=== PATIENT | female | born 1955 | race Caucasian/White ===

== ENCOUNTER 2018-01-16 18:06 | Emergency (ER) | payer MEDICARE, OTHER ==
[~2018-01-16] VITALS: Ht 162.6 cm; Wt 126.1 kg
[2018-01-16 20:45] LABS: Basophils # (auto) 0 uL; Basophils % (auto) 0.6 % (0.0-2.0); Eosinophils # (auto) 0.2 uL; Hematocrit 44.2 % (36.0-46.0); Hemoglobin 15.2 g/dL (12.2-16.2); Lymphocytes # (auto) 2.1 uL; Lymphocytes % (auto) 27.8 % (10.0-50.0); Mean Corpuscular Hemoglobin 31.8 pg (28.0-32.0); Mean Corpuscular Hgb Conc. 34.4 g/dL (32.0-36.0); Mean Corpuscular Volume 92.4 fL (80.0-100.0); Monocytes # (auto) 0.7 uL; Monocytes % (auto) 9.3 % (0.0-12.0); Neutrophils # (auto) 4.5 uL; Neutrophils % (auto) 60.3 % (37.0-80.0); Nucleated Red Blood Cells % 0.1 %; Platelet Count (auto) 295 10^3/uL (140-450); Red Blood Cells 4.78 10^6/uL (4.0-5.20); Red Cell Distribution Width 13.7 % (11.8-14.3); White Blood Cell 7.5 10^3/uL (4.4-10.8)
[2018-01-16 21:00] LABS: Alanine Aminotransferase 20 U/L (13-56); Albumin 4.1 g/dL (3.4-5.0); Alkaline Phosphatase 105 U/L (45-117); Amylase 47 U/L (25-115); Anion Gap 9 (5-15); Aspartate Aminotransferase 12 U/L (15-37); Bilirubin, Total 0.3 mg/dL (0.2-1.0); Blood Urea Nitrogen 22 mg/dL (7-18); Calcium 9.6 mg/dL (8.5-10.1); Carbon Dioxide 24 mmol/L (21-32); Chloride 105 mmol/L (98-107); GFR African American 57 mL/min; GFR Non-African American 47 mL/min; Glucose 93 mg/dL (74-106); Lipase 318 U/L (73-393); Potassium 4.2 mmol/L (3.5-5.1); Sodium 138 mmol/L (136-145); Total Protein 8.2 g/dL (6.4-8.2)
[2018-01-16 22:30] VITALS: BP 122/62
[2018-01-16] MEDS ORDERED: SODIUM CHLORIDE 0.9% 1,000 ML IV ONE (22:30)
[2018-01-16] MEDS ORDERED: NALBUPHINE HCL 10 MG/1ml INJECTION IV ONE (22:30)
[2018-01-16] MEDS ORDERED: ONDANSETRON HCL 4 MG/2 ML VIAL IV ONE (22:30)
[2018-01-16 23:15] LABS: Urine Bacteria FEW /hpf (None Seen); Urine Blood Negative /uL (Negative); Urine Mucus FEW (None Seen); Urine Specific Gravity 1.015 (1.001-1.035); Urine WBC 32 /hpf (0 - 5)
[2018-01-16] MEDS ORDERED: CEFTRIAXONE SODIUM 2 GM in D5W 5% 50 ML IV ONE (23:45)
[2018-01-16] MEDS ORDERED: cefTRIAXone 1GM/10ml IVPUSH 20 ML IV ONE (23:54)
[2018-01-17] MEDS ORDERED: cefTRIAXone 1GM/10ml IVPUSH 10 ML IV ONE ×2
== END 2018-01-17 00:23 | disposition home or self-care (01) ==
LOC: ER 18:06
DX: N39.0 Urinary tract infection, site not specified (principal); E66.01 Morbid (severe) obesity due to excess calories; Z68.42 Body mass index [BMI] 45.0-49.9, adult; Z90.710 Acquired absence of both cervix and uterus
CPT/HCPCS: 36415; 74176; 80053; 81001; 82150; 83690; 84484; 85025; 93005; 96374; 96375; 99285; J2300; J2405; J0696; J7060

== ENCOUNTER → 2018-01-23 | Outpatient (CLI) | payer OTHER ==
[2018-01-23 17:19] LABS: Albumin 3.5 g/dL (3.4-5.0); BUN/Creatinine Ratio 14.7; Bilirubin, Total 0.2 mg/dL (0.2-1.0); Calcium 8.5 mg/dL (8.5-10.1); Potassium 4.3 mmol/L (3.5-5.1); Total Protein 7.2 g/dL (6.4-8.2)
== END | disposition home or self-care (01) ==
LOC: LAB 16:09
PROVIDERS: ATTEND Internal Medicine
DX: K80.80 Other cholelithiasis without obstruction (principal); R11.0 Nausea
CPT/HCPCS: 36415; 80053; 82150; 83690

== ENCOUNTER → 2018-02-12 | Outpatient (CLI) | payer OTHER ==
[2018-02-12 15:35] LABS: Basophils # (auto) 0.1 uL; Basophils % (auto) 0.6 % (0.0-2.0); Eosinophils # (auto) 0.2 uL; Eosinophils % (auto) 1.7 % (0.0-7.0); Hemoglobin 14.6 g/dL (12.2-16.2); Lymphocytes # (auto) 2.1 uL; Lymphocytes % (auto) 21.5 % (10.0-50.0); Mean Corpuscular Hemoglobin 31.3 pg (28.0-32.0); Mean Corpuscular Hgb Conc. 33.9 g/dL (32.0-36.0); Mean Corpuscular Volume 92.3 fL (80.0-100.0); Monocytes % (auto) 10.3 % (0.0-12.0); Neutrophils # (auto) 6.3 uL; Neutrophils % (auto) 65.9 % (37.0-80.0); Nucleated Red Blood Cells % 0.1 %; Platelet Count (auto) 301 10^3/uL (140-450); Red Blood Cells 4.66 10^6/uL (4.0-5.20); Red Cell Distribution Width 13.7 % (11.8-14.3); White Blood Cell 9.6 10^3/uL (4.4-10.8)
[2018-02-12 15:54] LABS: Albumin 3.9 g/dL (3.4-5.0); BUN/Creatinine Ratio 15.6; Bilirubin, Total 0.4 mg/dL (0.2-1.0); Calcium 9.3 mg/dL (8.5-10.1); Potassium 4.2 mmol/L (3.5-5.1); Total Protein 7.7 g/dL (6.4-8.2)
== END | disposition home or self-care (01) ==
LOC: LAB 14:58
PROVIDERS: ATTEND Internal Medicine
DX: N39.0 Urinary tract infection, site not specified (principal); R10.10 Upper abdominal pain, unspecified; K92.1 Melena
CPT/HCPCS: 36415; 80053; 82150; 83690; 85025; 85652; 87086

== ENCOUNTER → 2018-02-16 | Outpatient (CLI) | payer OTHER | END | disposition home or self-care (01) | LOC: LAB 10:26 | PROVIDERS: ATTEND Internal Medicine | DX: K92.1 Melena (principal); N32.0 Bladder-neck obstruction | CPT/HCPCS: 82270 ==

== ENCOUNTER → 2018-04-30 | Outpatient (CLI) | payer OTHER | END | disposition home or self-care (01) | LOC: LAB 13:47 | PROVIDERS: ATTEND Internal Medicine Gastroenterology | DX: R10.11 Right upper quadrant pain (principal); R10.84 Generalized abdominal pain; R19.7 Diarrhea, unspecified | CPT/HCPCS: 82784; 83516; 86255 ==

== ENCOUNTER → 2018-05-12 | Outpatient (CLI) | payer OTHER | END | disposition home or self-care (01) | LOC: LAB 10:28 | PROVIDERS: ATTEND Internal Medicine Gastroenterology | DX: R10.11 Right upper quadrant pain (principal); R19.7 Diarrhea, unspecified | CPT/HCPCS: 82705; 87045; 87177; 87493; 87899 ==

== ENCOUNTER → 2018-07-06 | Day surgery (SDC) | payer OTHER ==
[2018-07-02 10:05] LABS: Urine Bacteria FEW /hpf (None Seen); Urine Blood Negative /uL (Negative); Urine Mucus FEW (None Seen); Urine Specific Gravity 1.012 (1.001-1.035); Urine WBC 3 /hpf (0 - 5)
[2018-07-02 10:12] LABS: Basophils # (auto) 0 uL; Basophils % (auto) 0.6 % (0.0-2.0); Eosinophils # (auto) 0.1 uL; Eosinophils % (auto) 2.1 % (0.0-7.0); Hematocrit 44.1 % (36.0-46.0); Hemoglobin 14.9 g/dL (12.2-16.2); Lymphocytes # (auto) 1.7 uL; Lymphocytes % (auto) 33.8 % (10.0-50.0); Mean Corpuscular Hemoglobin 31.3 pg (28.0-32.0); Mean Corpuscular Hgb Conc. 33.7 g/dL (32.0-36.0); Mean Corpuscular Volume 92.6 fL (80.0-100.0); Monocytes # (auto) 0.5 uL; Monocytes % (auto) 9.6 % (0.0-12.0); Neutrophils # (auto) 2.6 uL; Neutrophils % (auto) 53.9 % (37.0-80.0); Platelet Count (auto) 300 10^3/uL (140-450); Red Blood Cells 4.76 10^6/uL (4.0-5.20); Red Cell Distribution Width 13.3 % (11.8-14.3); White Blood Cell 4.9 10^3/uL (4.4-10.8)
[2018-07-02 10:20] LABS: Albumin 3.9 g/dL (3.4-5.0); BUN/Creatinine Ratio 18.2; Calcium 9.6 mg/dL (8.5-10.1); INR 0.98 (0.9-1.15); Partial Thromboplastin Time 27.4 sec (23.78-33.04); Potassium 4.3 mmol/L (3.5-5.1); Prothrombin Time 10.5 sec (9.27-12.13)
[2018-07-02 10:22] LABS: Bilirubin, Total 0.4 mg/dL (0.2-1.0); Total Protein 8.2 g/dL (6.4-8.2)
[~2018-07-06] VITALS: Ht 162.6 cm; Wt 122.5 kg
[~2018-07-06] MED LIST: DEXAMETHASONE SOD PHOS 10MG/1ML VIAL INJ IV ONE; ERGO1CAP6 PO; HYDR12.56 PO; HYDROmorphone HCL 2 MG/ML VL IV PRN; KETOROLAC TROMETH 30 MG/ML 1ML VIAL IV ONE; LABETALOL HCL 5 MG/ML 4ML SYRINGE IV PRN; LISI-646 PO; MEPERIDINE HCL (50 MG/ML) 1 ML VIAL ONE; METO-169 PO; MIDAZOLAM HCL 1MG/1ML-2 ML VIAL IV PRN; MIDAZOLAM HCL 1MG/1ML-2 ML VIAL ONE; MORPHINE SULFATE 4 MG/ML SYR/VIAL IV ONE; MORPHINE SULFATE 4 MG/ML SYR/VIAL IV PRN; ONDANSETRON HCL 4 MG/2 ML VIAL IV ONE; ONDANSETRON HCL 4 MG/2 ML VIAL ONE; PROPOFOL 10 MG/ML 20 ML IV ONE; ePHEDrine SULFATE 50 MG/ML AMP IV PRN; fentaNYL CITRATE 100 MCG/2 ML VL ONE
[2018-07-06 13:08] VITALS: BP 110/65
== END | disposition home or self-care (01) ==
LOC: SUR 09:56
PROVIDERS: ATTEND Internal Medicine Gastroenterology
DX: K29.80 Duodenitis without bleeding (principal); K29.50 Unspecified chronic gastritis without bleeding; K31.7 Polyp of stomach and duodenum; R19.7 Diarrhea, unspecified; K22.10 Ulcer of esophagus without bleeding; I10 Essential (primary) hypertension; E66.9 Obesity, unspecified; Z68.42 Body mass index [BMI] 45.0-49.9, adult; Z88.5 Allergy status to narcotic agent; Z79.899 Other long term (current) drug therapy; Z98.49 Cataract extraction status, unspecified eye; Z98.890 Other specified postprocedural states
CPT/HCPCS: 36415; 43239; 45380; 80053; 81001; 85025; 85610; 85730; 88305; 88313; 88342; A6257; J1100; J2175; J2250; J2405; J2704; J3010; J7030

== ENCOUNTER → 2018-09-04 | Outpatient (CLI) | payer OTHER ==
[~2018-09-04] MED LIST changes: -DEXAMETHASONE SOD PHOS 10MG/1ML VIAL INJ IV ONE; -HYDROmorphone HCL 2 MG/ML VL IV PRN; -KETOROLAC TROMETH 30 MG/ML 1ML VIAL IV ONE; -LABETALOL HCL 5 MG/ML 4ML SYRINGE IV PRN; -MEPERIDINE HCL (50 MG/ML) 1 ML VIAL ONE; -MIDAZOLAM HCL 1MG/1ML-2 ML VIAL IV PRN; -MIDAZOLAM HCL 1MG/1ML-2 ML VIAL ONE; -MORPHINE SULFATE 4 MG/ML SYR/VIAL IV ONE; -MORPHINE SULFATE 4 MG/ML SYR/VIAL IV PRN; -ONDANSETRON HCL 4 MG/2 ML VIAL IV ONE; -ONDANSETRON HCL 4 MG/2 ML VIAL ONE; -PROPOFOL 10 MG/ML 20 ML IV ONE; -ePHEDrine SULFATE 50 MG/ML AMP IV PRN; -fentaNYL CITRATE 100 MCG/2 ML VL ONE
== END | disposition home or self-care (01) ==
LOC: XY 07:03
PROVIDERS: ATTEND Internal Medicine Gastroenterology
DX: R10.11 Right upper quadrant pain (principal); R19.7 Diarrhea, unspecified
CPT/HCPCS: 78226; A9537

== ENCOUNTER → 2019-02-03 | Outpatient (CLI) | payer OTHER | END | disposition home or self-care (01) | LOC: XY 08:35 | PROVIDERS: ATTEND Internal Medicine Gastroenterology | DX: R10.11 Right upper quadrant pain (principal); R19.7 Diarrhea, unspecified | CPT/HCPCS: 78264; A9541 ==

== ENCOUNTER → 2019-03-15 | Outpatient (CLI) | payer OTHER ==
[2019-03-15 09:42] LABS: Basophils # (auto) 0 uL; Basophils % (auto) 0.5 % (0.0-2.0); Eosinophils # (auto) 0.2 uL; Eosinophils % (auto) 1.7 % (0.0-7.0); Hematocrit 43.2 % (36.0-46.0); Hemoglobin 14.7 g/dL (12.2-16.2); Lymphocytes # (auto) 1.2 uL; Lymphocytes % (auto) 13.8 % (10.0-50.0); Mean Corpuscular Hemoglobin 30.8 pg (28.0-32.0); Mean Corpuscular Hgb Conc. 33.9 g/dL (32.0-36.0); Mean Corpuscular Volume 90.9 fL (80.0-100.0); Monocytes # (auto) 0.7 uL; Monocytes % (auto) 8.3 % (0.0-12.0); Neutrophils # (auto) 6.8 uL; Neutrophils % (auto) 75.7 % (37.0-80.0); Platelet Count (auto) 265 10^3/uL (140-450); Red Blood Cells 4.76 10^6/uL (4.0-5.20); Red Cell Distribution Width 13.7 % (11.8-14.3); White Blood Cell 8.9 10^3/uL (4.4-10.8)
[2019-03-15 10:10] LABS: Potassium 4.2 mmol/L (3.5-5.1)
[2019-03-15 10:18] LABS: Albumin 3.7 g/dL (3.4-5.0); BUN/Creatinine Ratio 16.9; Bilirubin, Total 0.6 mg/dL (0.2-1.0); Calcium 9.6 mg/dL (8.5-10.1)
== END | disposition home or self-care (01) ==
LOC: LAB 09:04
PROVIDERS: ATTEND Internal Medicine
DX: Z00.00 Encounter for general adult medical examination without abnormal findings (principal); D57.80 Other sickle-cell disorders without crisis; E55.9 Vitamin D deficiency, unspecified; I10 Essential (primary) hypertension
CPT/HCPCS: 36415; 80053; 80061; 82306; 82607; 84443; 85025

== ENCOUNTER → 2019-04-27 | Outpatient (CLI) | payer OTHER, MEDICARE | END | disposition home or self-care (01) | LOC: LAB 11:33 | PROVIDERS: ATTEND Internal Medicine | DX: Z12.11 Encounter for screening for malignant neoplasm of colon (principal) | CPT/HCPCS: 82274 ==

== ENCOUNTER → 2019-05-07 | Outpatient (CLI) | payer MEDICARE, OTHER ==
[~2019-05-07] MED LIST changes: +AMIT-238 PO; +CHOL500023 PO; +GABA300C10 PO; +LIDOCAINE 1% HCL (LOCAL ANESTH.) INJ 20ML MDV IJ ONE; +PANT40TA2 PO
== END | disposition home or self-care (01) ==
LOC: US 09:37
PROVIDERS: ATTEND Internal Medicine
DX: C50.411 Malignant neoplasm of upper-outer quadrant of right female breast (principal); I10 Essential (primary) hypertension; E66.9 Obesity, unspecified; M54.16 Radiculopathy, lumbar region; K44.9 Diaphragmatic hernia without obstruction or gangrene; Z17.0 Estrogen receptor positive status [ER+]; Z98.890 Other specified postprocedural states; Z79.899 Other long term (current) drug therapy; Z68.42 Body mass index [BMI] 45.0-49.9, adult
CPT/HCPCS: 19083; 19084; 88305; 88342; J2001; 10022; 76942

== ENCOUNTER 2019-06-02 10:52 | Inpatient (IN) | payer OTHER ==
[2019-05-31 14:48] LABS: Basophils # (auto) 0.1 uL; Basophils % (auto) 0.8 % (0.0-2.0); Eosinophils # (auto) 0.1 uL; Eosinophils % (auto) 2.1 % (0.0-7.0); Hematocrit 42.1 % (36.0-46.0); Hemoglobin 14.3 g/dL (12.2-16.2); Lymphocytes # (auto) 2.2 uL; Lymphocytes % (auto) 31.8 % (10.0-50.0); Mean Corpuscular Hemoglobin 30.6 pg (28.0-32.0); Monocytes # (auto) 0.7 uL; Neutrophils # (auto) 3.9 uL; Neutrophils % (auto) 55.3 % (37.0-80.0); Nucleated Red Blood Cells % 0.1 %; Platelet Count (auto) 265 10^3/uL (140-450); Red Blood Cells 4.68 10^6/uL (4.0-5.20); Red Cell Distribution Width 13.8 % (11.8-14.3)
[2019-05-31 14:52] LABS: Albumin 3.6 g/dL (3.4-5.0); BUN/Creatinine Ratio 17.5; Calcium 9.2 mg/dL (8.5-10.1); Potassium 4.1 mmol/L (3.5-5.1)
[2019-05-31 14:55] LABS: Bilirubin, Total 0.3 mg/dL (0.2-1.0); Total Protein 7.7 g/dL (6.4-8.2)
[2019-05-31 14:56] LABS: INR 0.99 (0.9-1.15); Partial Thromboplastin Time 25.9 sec (23.64-32.05)
[2019-05-31 15:07] LABS: Urine Bacteria NONE SEEN /hpf (None Seen); Urine Blood Negative /uL (Negative); Urine Mucus FEW (None Seen); Urine Specific Gravity 1.012 (1.001-1.035); Urine WBC 52 /hpf (0 - 5)
[~2019-06-02] VITALS: Ht 162.6 cm; Wt 121.5 kg
[~2019-06-02 10:52] MED LIST changes: -ERGO1CAP6 PO; -LIDOCAINE 1% HCL (LOCAL ANESTH.) INJ 20ML MDV IJ ONE
[2019-06-02] MEDS ORDERED: PROPOFOL 10 MG/ML 20 ML IV ONE ×2 (14:14→15:00)
[2019-06-02] MEDS ORDERED: fentaNYL CITRATE 100 MCG/2 ML VL ONE ×2 (14:14→15:13)
[2019-06-02] MEDS ORDERED: ONDANSETRON HCL 4 MG/2 ML VIAL ONE (14:14)
[2019-06-02] MEDS ORDERED: SODIUM CHLORIDE LOCK 0 ML ONE (14:14)
[2019-06-02] MEDS ORDERED: ROCURONIUM 10MG/ML 10ML VIAL IV ONE ×3 (14:14→15:04)
[2019-06-02] MEDS ORDERED: fentaNYL CITRATE 0 ML ONE (14:14)
[2019-06-02] MEDS ORDERED: MIDAZOLAM HCL 1MG/1ML-2 ML VIAL ONE ×2 (14:14→14:58)
[2019-06-02] MEDS ORDERED: SUCCINYLCHOLINE CHLORIDE 20 MG/ML 10ML VIAL IV ONE (14:53)
[2019-06-02] MEDS ORDERED: LIDOCAINE 1% (LOCAL ANESTH.) PF 5ml SDV ONE (14:53)
[2019-06-02] MEDS ORDERED: ceFAZolin 1GM/50ML 50 ML IV ONE (14:54)
[2019-06-02] MEDS ORDERED: METOCLOPRAMIDE HCL 5MG/ml INJ 2ml VIAL ONE (14:59)
[2019-06-02] MEDS ORDERED: NALOXONE HCL 0.4 MG/ML VIAL IV PRN (15:15)
[2019-06-02] MEDS ORDERED: ONDANSETRON HCL 4 MG/2 ML VIAL IV PRN ×3 (15:15→17:30)
[2019-06-02] MEDS ORDERED: HYDROmorphone HCL 2 MG/ML VL IV PRN (15:15)
[2019-06-02] MEDS ORDERED: KETOROLAC TROMETH 30 MG/ML 1ML VIAL IV PRN ×3 (16:45→18:00)
[2019-06-02] MEDS: HYDROmorphone HCL 2 MG/ML VL IV PRN ×4 (16:55→17:35)
[2019-06-02] MEDS ORDERED: hydrALAZINE HCL 20 MG/ML VL IV PRN (17:30)
[2019-06-02] MEDS ORDERED: MORPHINE SULF INJ 2 MG/ML SYRINGE 1ML IV PRN (17:30)
[2019-06-02] MEDS ORDERED: NITROGLYCERIN 0.4 MG SL TAB SL PRN (17:30)
--- NOTE | 2019-06-02 18:00 | NUR ---
S/P Right MOdified Mastectomy Assumed care of the patient. Received reports from FLIGHT DIRECTOR. Patient to room 271-B following Right Mastectomy with Axillary Lymph Nodes Removal. With Ismael wrap dressing around the chest dry and intact. With 2 ANNA drains, first drain draining to sanguinous output in minimal amount. Vital signs taken, surgical site assessed for redness, swelling, or bleeding. Patient instructed on need to inform staff immediately for any pain, swelling, bleeding or pulling or popping sensations at surgical site. Patient verbalized understanding. Addendum: 06/02/19 at 1845 by Dora Haines RN Surgery performed by Dr. Mcmillan under general anesthesia.
[2019-06-02 18:15] VITALS: BP 123/77
[2019-06-02] MEDS: D5W/SOD CHL 0.45%/KCL 40MEQ 1,000 ML IV SCH (19:34)
--- NOTE | 2019-06-02 20:05 | NUR ---
open note assumed care of pt. upon entering room pt awake, alert and oriented x4. pt on 2L nc with no distress noted or expressed. pt has two ANNA drains to right chest area numbered 1 and 2. no drainage from #2. 60ml sanguineous fluid drained from #1. pt bed locked, low and 2x rails up. dressing to right chest CDI, with saeid bandage wrap. pt call light in reach, encouraged to call as needed. pt updated on plan of care. no questions at this time. will round q1hr and prn.
[2019-06-02 22:00] VITALS: BP 100/72
[2019-06-02] MEDS: GABAPENTIN 300 MG CAP PO SCH (22:37)
[2019-06-02] MEDS: ceFAZolin 1GM/50ML 50 ML IV SCH (22:37)
[2019-06-02] MEDS: traMADol HCL 50 MG TAB PO PRN (23:02)
--- NOTE | 2019-06-02 23:02 | NUR ---
ANNA drain #1; drained 45ml sanguineous fluid. scant drainage noted from drain #2
--- NOTE | 2019-06-03 03:50 | NUR ---
isi #1 45ml serosanguineous fluid drained isi #2 15ml sanguineous fluid drained.
[2019-06-03] MEDS: D5W/SOD CHL 0.45%/KCL 40MEQ 1,000 ML IV SCH ×2 (03:51→12:45)
[2019-06-03 05:00] VITALS: BP 104/42
[2019-06-03 05:10] LABS: Basophils # (auto) 0.1 uL; Basophils % (auto) 0.6 % (0.0-2.0); Eosinophils # (auto) 0 uL; Eosinophils % (auto) 0.1 % (0.0-7.0); Hemoglobin 12.7 g/dL (12.2-16.2); Lymphocytes # (auto) 1.2 uL; Lymphocytes % (auto) 12.8 % (10.0-50.0); Mean Corpuscular Hemoglobin 30.5 pg (28.0-32.0); Mean Corpuscular Hgb Conc. 34.3 g/dL (32.0-36.0); Mean Corpuscular Volume 89.1 fL (80.0-100.0); Monocytes # (auto) 1.1 uL; Monocytes % (auto) 11.5 % (0.0-12.0); Neutrophils # (auto) 6.9 uL; Platelet Count (auto) 245 10^3/uL (140-450); Red Blood Cells 4.15 10^6/uL (4.0-5.20); White Blood Cell 9.3 10^3/uL (4.4-10.8)
[2019-06-03 05:47] LABS: Potassium 4.4 mmol/L (3.5-5.1)
[2019-06-03 05:52] LABS: BUN/Creatinine Ratio 18.2; Calcium 8.6 mg/dL (8.5-10.1)
[2019-06-03] MEDS: GABAPENTIN 300 MG CAP PO SCH ×3 (06:12→21:31)
[2019-06-03] MEDS: ceFAZolin 1GM/50ML 50 ML IV SCH ×3 (06:12→21:31)
[2019-06-03] MEDS: HYDROmorphone HCL 2 MG/ML VL IV PRN ×3 (07:59→23:50)
[2019-06-03 09:00] VITALS: BP 94/58
[2019-06-03] MEDS: PANTOPRAZOLE 40 MG TAB PO SCH (09:35)
[2019-06-03] MEDS ORDERED: LISINOPRIL 10 MG TAB PO SCH (10:00)
[2019-06-03] MEDS: METOPROLOL SUCCINATE XL 50 MG TAB PO SCH (10:00)
--- NOTE | 2019-06-03 10:00 | NUR ---
Held administration of antihypertensive medications at this time because BP-94/58. Will continue to monitor.
[2019-06-03 13:00] VITALS: BP 105/77
--- NOTE | 2019-06-03 16:30 | NUR ---
Patient was able to ambulate with standby/minimal assist to the bathroom. Will continue care.
[2019-06-03 16:51] VITALS: BP 109/48
--- NOTE | 2019-06-03 17:00 | NUR ---
Empty 50ml on ANNA#1 and 15ml on ANNA#2 of serosanguinous output. Change of dressing on the right breast done. Will continue to monitor.
--- NOTE | 2019-06-03 19:45 | NUR ---
open note assumed care of pt. upon entering room pt awake and alert. pt on room air no distress noted or expressed. pt updated on plan of care, no questions at this time. pt has ANNA drain #1 and #[address] dressing to chest clean dry and intact. this nurse will monitor drainage and record. bed locked, low and 2 x rails up. call light in reach, will round q1hr and prn.
--- NOTE | 2019-06-03 21:32 | NUR ---
ANNA #1 50ml serosanguineous fluid emptied #2 10ml serosanguineous fluid emptied.
[2019-06-03 22:00] VITALS: BP 107/49
--- NOTE | 2019-06-03 23:50 | NUR ---
drains #1 ANNA 20ml serosanguineous #2 ANNA 10ml serosanguineous
[2019-06-04] MEDS: D5W/SOD CHL 0.45%/KCL 40MEQ 1,000 ML IV SCH (00:41)
[2019-06-04 04:58] VITALS: BP 103/64
[2019-06-04] MEDS: ceFAZolin 1GM/50ML 50 ML IV SCH ×3 (05:33→21:40)
[2019-06-04] MEDS: GABAPENTIN 300 MG CAP PO SCH ×3 (05:33→21:40)
[2019-06-04 06:00] LABS: BUN/Creatinine Ratio 13.8; Calcium 8.8 mg/dL (8.5-10.1); Potassium 5.4 mmol/L (3.5-5.1)
--- NOTE | 2019-06-04 06:44 | NUR ---
ANNA drains #1 20ml serosanguineous #2 10ml serosanguineous
--- NOTE | 2019-06-04 08:00 | NUR ---
Opening Shift Note Assumed care of patient, awake and alert. No S/S of distress/SOB, 5/10 right chest pain-incision site. Instructed on POC and to call for assist PRN, will continue to monitor for changes Q1hr and PRN.
[2019-06-04 09:00] VITALS: BP 93/44
[2019-06-04] MEDS: PANTOPRAZOLE 40 MG TAB PO SCH (10:38)
[2019-06-04] MEDS: METOPROLOL SUCCINATE XL 50 MG TAB PO SCH (10:38)
--- NOTE | 2019-06-04 12:02 | NUR ---
Nutrition Assessment Notes please see attached link for complete assessment Est. Needs ABW [id number] kcal (17-20 kcal/kgBW), 70-88 gms pro (0.8-1.0 gms/kgBW r/t elev RFT CKD). Will continue to monitor pertinent labs and reassess nutrient need prn Addendum: 06/04/19 at [address] Amended: Links added.
[2019-06-04 13:00] VITALS: BP 93/52
--- NOTE | 2019-06-04 14:00 | NUR ---
IV removal IV on the right hand infiltrated. IV DC'd with clean sterile technique, catheter fully intact. Pressure dressing applied to site. Patient tolerated well. Addendum: 06/04/19 at 1447 by Dora Haines RN correction on documentation: IV on the left hand infiltrated not the right hand. No IV on the right hand.
--- NOTE | 2019-06-04 14:05 | NUR ---
IV insertion IV access obtained, via clean sterile technique by inserting 20 gauge catheter at left forearm after one attempt. IV secured properly. No trauma to site. Patient tolerated well.
[2019-06-04] MEDS: SODIUM CHLORIDE 0.9% 1,000 ML IV SCH (14:23)
--- NOTE | 2019-06-04 14:40 | NUR ---
Patient may be possible discharge tomorrow, called Surgery office to make follow up appointment with Dr. Mcmillan ext. [phone] but unable to het a hold of the office. Will try again later.
[2019-06-04 16:37] VITALS: BP 118/71
--- NOTE | 2019-06-04 16:42 | NUR ---
Called surgery office ext. [phone], spoke with Roxane, patient's appointment made and it will be on 06/15/19 at 9:30am.
[2019-06-04] MEDS ORDERED: SODIUM ZIRCONIUM CYCL 10 GM PAK PO ONE (17:00)
--- NOTE | 2019-06-04 17:00 | NUR ---
Change of dressing done on the right chest.
--- NOTE | 2019-06-04 17:57 | NUR ---
Assessment Pt is a 63 yr old female, alert and oriented. Pt recently had a mastectomy of her right breast. Prior to going to the hospital, pt lived alone but stated that for recovery, she will be moving in with her mother. Her mother, Shasha Pruitt, is her emergency contact at [phone]. She states that her brother and niece would come over frequently to help her. Pt stated that her brother helps to cook and clean and that her niece would help to change the dressings on he wound and to bathe her. SW educated pt on home health services and asked pt if she would need any services. Pt denied the need for HH now and stated that they have everything taken care of. Pt stated that her mom has a walker and shower chair if she should need it. Pts Primary is Dr Mendy Charles at [phone]. The nurse informed that pt that per drs orders, the pt will be d/c tomorrow. Pts brother will provide transportation. Addendum: 06/04/19 at 1758 by KHANH ROSALES Amended: Links added.
--- NOTE | 2019-06-04 18:00 | NUR ---
ANNA #1-160ML ANNA #2-25ML TOTAL = 185ML
[2019-06-04] MEDS: traMADol HCL 50 MG TAB PO PRN (20:17)
--- NOTE | 2019-06-04 20:17 | NUR ---
HEADACHE PATIENT REPORTING HEADACHE RATED 7/10, PATIENT GIVEN PRN PAIN MEDICATION REQUESTED
--- NOTE | 2019-06-04 20:25 | NUR ---
ANNA DRAIN EMPTIED X2 DRAIN 1=45ML SEROSANGUINEOUS DRAINAGE DRAIN 2= APPROXIMATELY 5ML SEROSANGUINEOUS DRAINAGE NO ODORS NOTED FROM DRAINAGE. RETURNED BOTH TO BULB SUCTION ORDERED.
--- NOTE | 2019-06-04 20:30 | NUR ---
INSTRUCTED PATIENT ON NEED FOR URINE SAMPLE, HAT PLACED IN TOILET AND CUP PROVIDED TO PATIENT. INSTRUCTED PATIENT TO CALL FOR ASSIST ONCE SHE IS READY TO VOID, SHE VERBALIZED UNDERSTANDING.
--- NOTE | 2019-06-04 20:30 | NUR ---
INCENTIVE SPIROMETRY AND AMBULATION INSTRUCTED PATIENT ON THE IMPORTANCE OF AMBULATION AT LEAST EVERY 4 HOURS ORDERED BY THE DOCTOR. PATIENT STATES SHE JUST AMBULATED TO THE BATHROOM AND AMBULATED TODAY WITH PHYSICAL THERAPY IN THE HALLWAYS USING A WALKER. PATIENT STATES SHE TOLERATED THAT WELL. INSTRUCTED PATIENT ON THE IMPORTANCE OF INCENTIVE SPIROMETRY EXERCISES AT LEAST 10X/HOUR WHILE AWAKE TO PREVENT POST-OP PNEUMONIA/COMPLICATIONS, SHE VERBALIZED UNDERSTANDING. PATIENT PERFORMED I.S. EXERCISES CORRECTLY 10X IN FRONT OF MYSELF.
[2019-06-04 21:00] VITALS: BP 104/66
[2019-06-05] MEDS: SODIUM CHLORIDE 0.9% 1,000 ML IV SCH ×2 (01:19→09:15)
--- NOTE | 2019-06-05 02:50 | NUR ---
ANNA DRAIN EMPTIED X2 DRAIN 1=45ML SEROSANGUINEOUS DRAINAGE DRAIN 2= APPROXIMATELY 5ML SEROSANGUINEOUS DRAINAGE NO ODORS NOTED FROM DRAINAGE. RETURNED BOTH TO BULB SUCTION ORDERED.
[2019-06-05 04:51] VITALS: BP 101/71
[2019-06-05] MEDS: GABAPENTIN 300 MG CAP PO SCH (05:53)
[2019-06-05] MEDS: ceFAZolin 1GM/50ML 50 ML IV SCH (05:54)
[2019-06-05 06:40] LABS: BUN/Creatinine Ratio 19.8; Calcium 8.6 mg/dL (8.5-10.1); Potassium 4.5 mmol/L (3.5-5.1)
--- NOTE | 2019-06-05 06:50 | NUR ---
ANNA DRAIN EMPTIED X2 DRAIN 1=30ML SEROSANGUINEOUS DRAINAGE DRAIN 2= SCANT SEROSANGUINEOUS DRAINAGE NO ODORS NOTED FROM DRAINAGE. RETURNED BOTH TO BULB SUCTION ORDERED.
--- NOTE | 2019-06-05 07:00 | NUR ---
ANNA DRAIN OUTPUT TOTAL DRAIN 1-120ML DRAIN 2-10ML DRESSING TO RIGHT CHEST REMAINS C/D/I. INCISION SITE WELL-APPROXIMATED WITH RAMÍREZ INTACT. MINIMAL DRIED DRAINAGE NOTED.
--- NOTE | 2019-06-05 07:15 | NUR ---
Opening Shift Note: Assumed care of patient, asleep in bed. No S/S of distress/SOB or pain. Bed in lowest locked position, side rails up x 2, call light within reach. Will instructe on POC, will continue to monitor for changes Q1hr and PRN.
[2019-06-05 09:13] VITALS: BP 126/62
[2019-06-05] MEDS: PANTOPRAZOLE 40 MG TAB PO SCH (09:22)
[2019-06-05] MEDS: METOPROLOL SUCCINATE XL 50 MG TAB PO SCH (09:23)
[2019-06-05 11:48] VITALS: BP 101/58
[2019-06-05 13:28] VITALS: BP 126/62
--- NOTE | 2019-06-05 13:59 | NUR ---
ANNA DRAIN #1- 40 ml #2- 10 mL
--- NOTE | 2019-06-05 14:02 | NUR ---
IV removal IV DC'd with clean sterile technique, catheter fully intact. Pressure dressing applied to site. Patient tolerated well.
== END 2019-06-05 14:16 | disposition home or self-care (01) | DRG 582 ==
LOC: SUR 10:52 → WEST WING 10:53
PROVIDERS: ADMIT Surgery; ATTEND Internal Medicine
PROC: 0HTT0ZZ Resection of Right Breast, Open Approach (ICD-10-PCS; principal; 2019-06-02 14:54)
DX: C50.911 Malignant neoplasm of unspecified site of right female breast (principal); N17.0 Acute kidney failure with tubular necrosis; Z68.42 Body mass index [BMI] 45.0-49.9, adult; E87.1 Hypo-osmolality and hyponatremia; E66.01 Morbid (severe) obesity due to excess calories; I12.9 Hypertensive chronic kidney disease with stage 1 through stage 4 chronic kidney disease, or unspecified chronic kidney disease; N18.3 Chronic kidney disease, stage 3 (moderate); G89.29 Other chronic pain; F32.9 Major depressive disorder, single episode, unspecified; M54.9 Dorsalgia, unspecified; E87.5 Hyperkalemia; R59.9 Enlarged lymph nodes, unspecified; Z79.899 Other long term (current) drug therapy; Z88.5 Allergy status to narcotic agent; Z87.11 Personal history of peptic ulcer disease
CPT/HCPCS: 36415; 80048; 80053; 81001; 84132; 85025; 85610; 85730; 87086; 88341; 97116; 97163; 97530; G0378; J0330; J0690; J1885; J2250; J2405; J2704

== ENCOUNTER → 2019-06-11 | Outpatient (CLI) | payer OTHER ==
[2019-06-11 14:44] LABS: Basophils # (auto) 0.1 uL; Basophils % (auto) 0.7 % (0.0-2.0); Eosinophils # (auto) 0.2 uL; Eosinophils % (auto) 2.5 % (0.0-7.0); Hematocrit 36.4 % (36.0-46.0); Hemoglobin 12.1 g/dL (12.2-16.2); Lymphocytes % (auto) 22.1 % (10.0-50.0); Mean Corpuscular Hemoglobin 30.5 pg (28.0-32.0); Mean Corpuscular Hgb Conc. 33.3 g/dL (32.0-36.0); Mean Corpuscular Volume 91.5 fL (80.0-100.0); Monocytes # (auto) 0.6 uL; Monocytes % (auto) 6.2 % (0.0-12.0); Neutrophils # (auto) 6.3 uL; Neutrophils % (auto) 68.5 % (37.0-80.0); Platelet Count (auto) 341 10^3/uL (140-450); Red Blood Cells 3.97 10^6/uL (4.0-5.20); Red Cell Distribution Width 13.9 % (11.8-14.3); White Blood Cell 9.2 10^3/uL (4.4-10.8)
[2019-06-11 15:31] LABS: Albumin 3.1 g/dL (3.4-5.0); BUN/Creatinine Ratio 17.1; Potassium 4.3 mmol/L (3.5-5.1)
[2019-06-11 15:34] LABS: Bilirubin, Total 0.3 mg/dL (0.2-1.0)
== END | disposition home or self-care (01) ==
LOC: LAB 14:27
PROVIDERS: ATTEND Internal Medicine Hematology & Oncology
DX: C50.911 Malignant neoplasm of unspecified site of right female breast (principal)
CPT/HCPCS: 36415; 80053; 85025; 86300

== ENCOUNTER → 2019-10-19 | Outpatient (CLI) | payer OTHER ==
[2019-10-19 14:22] LABS: Basophils # (auto) 0 uL; Basophils % (auto) 0.6 % (0.0-2.0); Eosinophils # (auto) 0.1 uL; Eosinophils % (auto) 2.2 % (0.0-7.0); Hematocrit 42.4 % (36.0-46.0); Hemoglobin 14.2 g/dL (12.2-16.2); Lymphocytes # (auto) 1.5 uL; Lymphocytes % (auto) 23.5 % (10.0-50.0); Mean Corpuscular Hemoglobin 29.9 pg (28.0-32.0); Mean Corpuscular Hgb Conc. 33.3 g/dL (32.0-36.0); Mean Corpuscular Volume 89.8 fL (80.0-100.0); Monocytes # (auto) 0.6 uL; Monocytes % (auto) 8.8 % (0.0-12.0); Neutrophils # (auto) 4.1 uL; Neutrophils % (auto) 64.9 % (37.0-80.0); Platelet Count (auto) 284 10^3/uL (140-450); Red Blood Cells 4.73 10^6/uL (4.0-5.20); Red Cell Distribution Width 14.8 % (11.8-14.3); White Blood Cell 6.4 10^3/uL (4.4-10.8)
[2019-10-19 14:46] LABS: Potassium 4.3 mmol/L (3.5-5.1)
[2019-10-19 14:50] LABS: Albumin 3.6 g/dL (3.4-5.0); BUN/Creatinine Ratio 19.3; Calcium 9.6 mg/dL (8.5-10.1)
[2019-10-19 14:52] LABS: Bilirubin, Total 0.4 mg/dL (0.2-1.0); Total Protein 7.9 g/dL (6.4-8.2)
== END | disposition home or self-care (01) ==
LOC: LAB 14:01
PROVIDERS: ATTEND Internal Medicine Hematology & Oncology
DX: C50.911 Malignant neoplasm of unspecified site of right female breast (principal)
CPT/HCPCS: 36415; 80053; 85025; 86300

== ENCOUNTER 2020-05-17 06:50 | Day surgery (SDC) | payer OTHER, MEDICAID ==
[2020-05-11 13:56] LABS: Basophils # (auto) 0 10 ^3/uL (0-0.2); Basophils % (auto) 0.4 % (0.0-2.0); Eosinophils # (auto) 0.1 10 ^3/uL (0-0.8); Eosinophils % (auto) 0.6 % (0.0-7.0); Hemoglobin 12.6 g/dL (12.2-16.2); Lymphocytes # (auto) 0.9 10 ^3/uL (0.4-5.4); Lymphocytes % (auto) 7.6 % (10.0-50.0); Mean Corpuscular Hemoglobin 30.6 pg (28.0-32.0); Mean Corpuscular Hgb Conc. 32.4 g/dL (32.0-36.0); Mean Corpuscular Volume 94.2 fL (80.0-100.0); Monocytes # (auto) 1.1 10 ^3/uL (0-1.3); Monocytes % (auto) 9.1 % (0.0-12.0); Neutrophils # (auto) 9.8 10 ^3/uL (1.6-8.6); Neutrophils % (auto) 82.3 % (37.0-80.0); Platelet Count (auto) 294 10^3/uL (140-450); Red Blood Cells 4.14 10^6/uL (4.0-5.20); Red Cell Distribution Width 13.5 % (11.8-14.3); White Blood Cell 11.9 10^3/uL (4.4-10.8)
[2020-05-11 14:13] LABS: INR 1.11 (0.9-1.15); Partial Thromboplastin Time 27.8 sec (23.0-31.2)
[2020-05-11 14:18] LABS: Albumin 3.1 g/dL (3.4-5.0); Calcium 9.7 mg/dL (8.5-10.1); Potassium 4.2 mmol/L (3.5-5.1)
[2020-05-11 14:21] LABS: BUN/Creatinine Ratio 23.8; Bilirubin, Total 0.3 mg/dL (0.2-1.0)
[~2020-05-17] VITALS: Ht 162.6 cm; Wt 120.2 kg
[~2020-05-17 06:50] MED LIST changes: +ANAS1TAB52 PO; +CALCTAB PO; +CYA100I IM; +GABA100C9 PO; -GABA300C10 PO; -PANT40TA2 PO
[2020-05-17] MEDS ORDERED: ceFAZolin 1GM/50ML 100 ML IV ONE (07:06)
[2020-05-17] MEDS ORDERED: PROPOFOL 10 MG/ML 20 ML IV ONE (07:33)
[2020-05-17] MEDS ORDERED: BUPIVACAINE 0.5% MPF INJ 30ML SDV IJ ONE (07:33)
[2020-05-17] MEDS ORDERED: LIDOCAINE 1% HCL (LOCAL ANESTH.) INJ 20ML MDV ONE ×2 (07:33)
[2020-05-17 08:03] LABS: Urine Bacteria FEW /hpf (None Seen); Urine Blood Negative /uL (Negative); Urine Hyaline Cast MANY /lpf (0 - 2); Urine Mucus FEW (None Seen); Urine Specific Gravity 1.027 (1.001-1.035); Urine WBC 188 /hpf (0 - 5)
[2020-05-17] MEDS ORDERED: SUCCINYLCHOLINE CHLORIDE 20 MG/ML 10ML VIAL IV ONE (08:48)
[2020-05-17] MEDS ORDERED: fentaNYL CITRATE 100 MCG/2 ML VL ONE ×2 (08:56→09:20)
[2020-05-17] MEDS ORDERED: MIDAZOLAM HCL 1MG/1ML-2 ML VIAL ONE (09:20)
[2020-05-17] MEDS ORDERED: ONDANSETRON HCL 4 MG/2 ML VIAL IV PRN (09:45)
[2020-05-17] MEDS ORDERED: hydrALAZINE HCL 20 MG/ML VL IV PRN (09:45)
[2020-05-17] MEDS ORDERED: fentaNYL CITRATE 100 MCG/2 ML VL IV PRN (09:45)
[2020-05-17] MEDS ORDERED: ePHEDrine SULFATE 50 MG/ML AMP IV PRN (09:45)
[2020-05-17 10:05] VITALS: BP 115/62
== END 2020-05-17 10:25 | disposition home or self-care (01) ==
LOC: SUR 06:50
PROVIDERS: ATTEND Podiatrist
DX: S92.352A Displaced fracture of fifth metatarsal bone, left foot, initial encounter for closed fracture (principal); I10 Essential (primary) hypertension; E66.9 Obesity, unspecified; H26.8 Other specified cataract; Z85.3 Personal history of malignant neoplasm of breast; Z88.5 Allergy status to narcotic agent; Z68.45 Body mass index [BMI] 70 or greater, adult; Z90.10 Acquired absence of unspecified breast and nipple; Z90.710 Acquired absence of both cervix and uterus; Z79.899 Other long term (current) drug therapy; Z20.828 Contact with and (suspected) exposure to other viral communicable diseases; W19.XXXA Unspecified fall, initial encounter; Y93.89 Activity, other specified; Y92.098 Other place in other non-institutional residence as the place of occurrence of the external cause; Y99.8 Other external cause status
CPT/HCPCS: 28485; 36415; 73620; 80053; 81001; 85025; 85610; 85730; C1713; J0330; J0690; J2001; J2704; J3010; J3490; U0003; 76000; J2250

== ENCOUNTER 2020-06-15 11:37 | Inpatient (IN) | payer OTHER, MEDICAID ==
[~2020-06-15] VITALS: Ht 162.6 cm; Wt 120.2 kg
[2020-06-15] MEDS ORDERED: CLINDAMYCIN 600MG IV 50 ML IV ONE ×2 (12:45→15:30)
[2020-06-15] MEDS ORDERED: NITROGLYCERIN 0.4 MG SL TAB SL PRN ×2 (13:45→14:45)
[2020-06-15] MEDS ORDERED: MORPHINE SULF INJ 2 MG/ML SYRINGE 1ML IV PRN ×3 (13:45→14:45)
[2020-06-15 14:11] LABS: Basophils # (auto) 0.1 10 ^3/uL (0-0.2); Basophils % (auto) 0.8 % (0.0-2.0); Eosinophils # (auto) 0.1 10 ^3/uL (0-0.8); Eosinophils % (auto) 1.4 % (0.0-7.0); Hematocrit 37.6 % (36.0-46.0); Hemoglobin 12.4 g/dL (12.2-16.2); Lymphocytes # (auto) 1.2 10 ^3/uL (0.4-5.4); Lymphocytes % (auto) 16.4 % (10.0-50.0); Mean Corpuscular Hemoglobin 30.3 pg (28.0-32.0); Mean Corpuscular Hgb Conc. 32.9 g/dL (32.0-36.0); Mean Corpuscular Volume 91.8 fL (80.0-100.0); Monocytes # (auto) 0.8 10 ^3/uL (0-1.3); Monocytes % (auto) 10.4 % (0.0-12.0); Neutrophils # (auto) 5.2 10 ^3/uL (1.6-8.6); Nucleated Red Blood Cells % 0.1 %; Platelet Count (auto) 345 10^3/uL (140-450); Red Blood Cells 4.09 10^6/uL (4.0-5.20); Red Cell Distribution Width 14.3 % (11.8-14.3); White Blood Cell 7.3 10^3/uL (4.4-10.8)
[2020-06-15] MEDS ORDERED: LACTATED RINGER'S 1,000 ML IV ONE (14:15)
[2020-06-15] MEDS ORDERED: CEFTRIAXONE SODIUM 2 GM in D5W 5% 50 ML IV ONE (14:15)
[2020-06-15] MEDS ORDERED: cefTRIAXone 1GM/50ML D5W 50 ML IV ONE (14:30)
[2020-06-15] MEDS ORDERED: cefTRIAXone SOD 1,000 MG VL ONE (14:41)
[2020-06-15] MEDS ORDERED: ALUM & MAG HYDROX-SIMETH LIQ(MAALOX) 30 ML PO PRN (14:45)
[2020-06-15] MEDS ORDERED: DOCUSATE SOD 100 MG CAP PO PRN (14:45)
[2020-06-15] MEDS ORDERED: LORazepam 0.5 MG TAB PO PRN (14:45)
[2020-06-15] MEDS ORDERED: ONDANSETRON HCL 4 MG/2 ML VIAL IV PRN (14:45)
[2020-06-15] MEDS ORDERED: HYDROcodone-ACET 5/325MG TAB PO PRN (14:45)
[2020-06-15 16:30] LABS: Albumin 2.8 g/dL (3.4-5.0); Anion Gap 6 (5-15); Blood Urea Nitrogen 16 mg/dL (7-18); Calcium 9.9 mg/dL (8.5-10.1); Carbon Dioxide 26 mmol/L (21-32); Chloride 107 mmol/L (98-107); Glucose 82 mg/dL (74-106); Potassium 4.4 mmol/L (3.5-5.1); Sodium 139 mmol/L (136-145)
[2020-06-15 16:32] LABS: Alanine Aminotransferase 22 U/L (13-56); Aspartate Aminotransferase 21 U/L (15-37); BUN/Creatinine Ratio 14.2; GFR African American 62 mL/min; GFR Non-African American 51 mL/min
[2020-06-15 16:34] LABS: Alkaline Phosphatase 141 U/L (45-117); Bilirubin, Total 0.3 mg/dL (0.2-1.0); Total Protein 7.7 g/dL (6.4-8.2)
[2020-06-15 16:40] LABS: Cholesterol 147 mg/dL (< 200); HDL Cholesterol 44 mg/dL (40-59); LDL Cholesterol 72 mg/dL (< 100); Triglycerides 148 mg/dL (< 150)
[2020-06-15] MEDS: CALCIUM W/VIT D (600MG/400IU) TAB PO SCH (18:37)
[2020-06-15] MEDS: SODIUM CHLORIDE 0.9% 1,000 ML IV SCH (18:37)
[2020-06-15 20:00] VITALS: BP 92/48
[2020-06-15] MEDS: GABAPENTIN 100 MG CAP PO SCH (21:07)
[2020-06-15] MEDS: CLINDAMYCIN 600MG IV 50 ML IV SCH (21:08)
[2020-06-15] MEDS: AMITRIPTYLINE HCL 25 MG TAB PO SCH (21:08)
[2020-06-15 22:00] VITALS: BP 92/48
[2020-06-16] MEDS: SODIUM CHLORIDE 0.9% 1,000 ML IV SCH ×2 (03:18→16:43)
[2020-06-16 05:00] VITALS: BP 104/55
[2020-06-16] MEDS: GABAPENTIN 100 MG CAP PO SCH ×3 (05:27→22:28)
[2020-06-16] MEDS: CLINDAMYCIN 600MG IV 50 ML IV SCH ×3 (05:27→22:27)
[2020-06-16 08:00] VITALS: BP 105/69
[2020-06-16] MEDS: CALCIUM W/VIT D (600MG/400IU) TAB PO SCH ×2 (09:12→17:41)
[2020-06-16] MEDS: CYANOCOBALAMIN 500 MCG TAB PO SCH (09:12)
[2020-06-16] MEDS: Anastrozole 1 MG TAB PO SCH (09:12)
[2020-06-16] MEDS: METOPROLOL SUCCINATE XL 50 MG TAB PO SCH (09:26)
[2020-06-16] MEDS ORDERED: HCTZ 25 MG TAB PO SCH (10:00)
[2020-06-16] MEDS ORDERED: LISINOPRIL 10 MG TAB PO SCH (10:00)
[2020-06-16] MEDS ORDERED: CHOLECALCIFEROL (VITD3) 2,000 UNIT CAP PO SCH (10:00)
[2020-06-16] MEDS ORDERED: CEFTRIAXONE SODIUM 2 GM in D5W 5% 50 ML IV SCH (10:00)
[2020-06-16] MEDS ORDERED: MORPHINE SULF INJ 2 MG/ML SYRINGE 1ML IV PRN (12:15)
[2020-06-16 13:01] LABS: Alcohol, Urine < 3.0 mg/dL (0-10); Amphetamine Screen, Urine NEGATIVE (NEGATIVE); Barbiturate Scree,Urine NEGATIVE (NEGATIVE); Benzodiazephine Screen, Urine NEGATIVE (NEGATIVE); Cannabinoid Screen, Urine NEGATIVE (NEGATIVE); Cocaine Screen, Urine NEGATIVE (NEGATIVE); Opiate Scree,Urine NEGATIVE (NEGATIVE); Phencyclidine Screen, Urine NEGATIVE (NEGATIVE)
[2020-06-16 13:18] LABS: Urine Bacteria FEW /hpf (None Seen); Urine Blood Negative /uL (Negative); Urine WBC <1 /hpf (0 - 5)
[2020-06-16 17:04] VITALS: BP 104/57
[2020-06-16 22:00] VITALS: BP 116/62
[2020-06-16] MEDS: AMITRIPTYLINE HCL 25 MG TAB PO SCH (22:27)
[2020-06-16] MEDS: FAMOTIDINE 20 MG TAB PO SCH (22:28)
[2020-06-17 05:27] LABS: Basophils # (auto) 0 10 ^3/uL (0-0.2); Basophils % (auto) 1.1 % (0.0-2.0); Eosinophils # (auto) 0.3 10 ^3/uL (0-0.8); Eosinophils % (auto) 6.9 % (0.0-7.0); Hematocrit 31.2 % (36.0-46.0); Hemoglobin 10.7 g/dL (12.2-16.2); Lymphocytes # (auto) 1.2 10 ^3/uL (0.4-5.4); Lymphocytes % (auto) 27.8 % (10.0-50.0); Mean Corpuscular Hemoglobin 31.6 pg (28.0-32.0); Mean Corpuscular Hgb Conc. 34.4 g/dL (32.0-36.0); Mean Corpuscular Volume 91.8 fL (80.0-100.0); Monocytes # (auto) 0.6 10 ^3/uL (0-1.3); Monocytes % (auto) 13.8 % (0.0-12.0); Neutrophils # (auto) 2.3 10 ^3/uL (1.6-8.6); Neutrophils % (auto) 50.4 % (37.0-80.0); Platelet Count (auto) 268 10^3/uL (140-450); Red Blood Cells 3.39 10^6/uL (4.0-5.20); Red Cell Distribution Width 14.2 % (11.8-14.3); White Blood Cell 4.5 10^3/uL (4.4-10.8)
[2020-06-17 05:34] VITALS: BP 119/61
[2020-06-17 05:43] LABS: BUN/Creatinine Ratio 14.2; Calcium 9.2 mg/dL (8.5-10.1); Magnesium 2.1 mg/dL (1.6-2.6); Potassium 4.1 mmol/L (3.5-5.1)
[2020-06-17] MEDS: CLINDAMYCIN 600MG IV 50 ML IV SCH ×3 (06:12→21:13)
[2020-06-17] MEDS: GABAPENTIN 100 MG CAP PO SCH ×3 (06:12→21:14)
[2020-06-17] MEDS: SODIUM CHLORIDE 0.9% 1,000 ML IV SCH ×2 (06:47→21:13)
[2020-06-17 08:58] VITALS: BP 98/66
[2020-06-17] MEDS: CALCIUM W/VIT D (600MG/400IU) TAB PO SCH ×2 (09:05→17:34)
[2020-06-17] MEDS: cefTRIAXone 1GM/50ML D5W 50 ML IV SCH (09:05)
[2020-06-17] MEDS: Anastrozole 1 MG TAB PO SCH (09:07)
[2020-06-17] MEDS: METOPROLOL SUCCINATE XL 50 MG TAB PO SCH (09:07)
[2020-06-17] MEDS: CYANOCOBALAMIN 500 MCG TAB PO SCH (09:36)
[2020-06-17] MEDS: FAMOTIDINE 20 MG TAB PO SCH ×2 (09:36→21:14)
[2020-06-17] MEDS: ENOXAPARIN SOD 40 MG/0.4 ML SYRINGE SC SCH (09:37)
[2020-06-17] MEDS: CHOLECALCIFEROL (VITD3) 1,000UNIT=25mCg TAB PO SCH (09:52)
[2020-06-17 13:00] VITALS: BP 125/69
[2020-06-17] MEDS: ACETAMINOPHEN 325 MG TAB PO PRN (15:00)
[2020-06-17 17:17] VITALS: BP 132/76
[2020-06-17] MEDS: AMITRIPTYLINE HCL 25 MG TAB PO SCH (21:13)
[2020-06-17 22:00] VITALS: BP 123/69
[2020-06-18 05:00] VITALS: BP 109/59
[2020-06-18] MEDS: CLINDAMYCIN 600MG IV 50 ML IV SCH ×3 (06:10→21:52)
[2020-06-18] MEDS: GABAPENTIN 100 MG CAP PO SCH ×3 (06:10→21:52)
[2020-06-18] MEDS: CALCIUM W/VIT D (600MG/400IU) TAB PO SCH ×2 (08:06→17:30)
[2020-06-18 09:00] VITALS: BP 117/64
[2020-06-18] MEDS: SODIUM CHLORIDE 0.9% 1,000 ML IV SCH ×2 (09:07→12:38)
[2020-06-18] MEDS: cefTRIAXone 1GM/50ML D5W 50 ML IV SCH (09:09)
[2020-06-18] MEDS: CYANOCOBALAMIN 500 MCG TAB PO SCH (09:46)
[2020-06-18] MEDS: FAMOTIDINE 20 MG TAB PO SCH ×2 (09:46→21:52)
[2020-06-18] MEDS: Anastrozole 1 MG TAB PO SCH (09:46)
[2020-06-18] MEDS: CHOLECALCIFEROL (VITD3) 1,000UNIT=25mCg TAB PO SCH (09:46)
[2020-06-18] MEDS: ENOXAPARIN SOD 40 MG/0.4 ML SYRINGE SC SCH (09:47)
[2020-06-18] MEDS: METOPROLOL SUCCINATE XL 50 MG TAB PO SCH (10:00)
[2020-06-18] MEDS: Ensure HIGH Protein Chocolate 8oz Bottle PO SCH ×2 (12:38→17:23)
[2020-06-18 13:00] VITALS: BP 109/54
[2020-06-18] MEDS: ACETAMINOPHEN 325 MG TAB PO PRN ×2 (13:47→21:52)
[2020-06-18 16:57] VITALS: BP 109/63
[2020-06-18] MEDS: AMITRIPTYLINE HCL 25 MG TAB PO SCH (21:52)
[2020-06-18 22:32] VITALS: BP 122/75
[2020-06-19 05:00] VITALS: BP 126/75
[2020-06-19] MEDS: GABAPENTIN 100 MG CAP PO SCH ×2 (06:13→12:44)
[2020-06-19] MEDS: CLINDAMYCIN 600MG IV 50 ML IV SCH ×2 (06:13→14:00)
[2020-06-19 06:23] LABS: Basophils # (auto) 0 10 ^3/uL (0-0.2); Basophils % (auto) 1.1 % (0.0-2.0); Eosinophils # (auto) 0.4 10 ^3/uL (0-0.8); Eosinophils % (auto) 8.9 % (0.0-7.0); Hematocrit 34.3 % (36.0-46.0); Hemoglobin 11.4 g/dL (12.2-16.2); Lymphocytes # (auto) 1.3 10 ^3/uL (0.4-5.4); Lymphocytes % (auto) 32.6 % (10.0-50.0); Mean Corpuscular Hemoglobin 31.3 pg (28.0-32.0); Mean Corpuscular Hgb Conc. 33.3 g/dL (32.0-36.0); Mean Corpuscular Volume 93.9 fL (80.0-100.0); Monocytes # (auto) 0.5 10 ^3/uL (0-1.3); Monocytes % (auto) 13.7 % (0.0-12.0); Neutrophils # (auto) 1.7 10 ^3/uL (1.6-8.6); Neutrophils % (auto) 43.7 % (37.0-80.0); Platelet Count (auto) 281 10^3/uL (140-450); Red Blood Cells 3.65 10^6/uL (4.0-5.20); Red Cell Distribution Width 14.6 % (11.8-14.3); White Blood Cell 3.9 10^3/uL (4.4-10.8)
[2020-06-19 06:45] LABS: Potassium 4.6 mmol/L (3.5-5.1)
[2020-06-19 07:09] LABS: BUN/Creatinine Ratio 14.4; Calcium 9.2 mg/dL (8.5-10.1)
[2020-06-19 08:00] VITALS: BP 134/70
[2020-06-19] MEDS: CALCIUM W/VIT D (600MG/400IU) TAB PO SCH ×2 (08:00→18:00)
[2020-06-19] MEDS: FAMOTIDINE 20 MG TAB PO SCH (08:41)
[2020-06-19] MEDS: CYANOCOBALAMIN 500 MCG TAB PO SCH (08:41)
[2020-06-19] MEDS: cefTRIAXone 1GM/50ML D5W 50 ML IV SCH (08:41)
[2020-06-19] MEDS: METOPROLOL SUCCINATE XL 50 MG TAB PO SCH (08:42)
[2020-06-19] MEDS: CHOLECALCIFEROL (VITD3) 1,000UNIT=25mCg TAB PO SCH (08:42)
[2020-06-19] MEDS: ENOXAPARIN SOD 40 MG/0.4 ML SYRINGE SC SCH (08:42)
[2020-06-19] MEDS: Anastrozole 1 MG TAB PO SCH (08:43)
[2020-06-19] MEDS: Ensure HIGH Protein Chocolate 8oz Bottle PO SCH ×3 (08:52→18:00)
[2020-06-19] MEDS: SODIUM CHLORIDE 0.9% 1,000 ML IV SCH (08:52)
[2020-06-19 08:58] VITALS: BP 134/70
[2020-06-19] MEDS ORDERED: SACC250C PO (11:19)
[2020-06-19] MEDS ORDERED: CLIN300C8 PO (11:19)
[2020-06-19] MEDS ORDERED: LEVO500T21 PO (11:19)
[2020-06-19] MEDS: ACETAMINOPHEN 325 MG TAB PO PRN (12:44)
[2020-06-19 13:00] VITALS: BP 142/72
[2020-06-19 14:59] VITALS: BP 134/70
[2020-06-19 16:32] VITALS: BP 125/74
== END 2020-06-19 18:00 | disposition home health service (06) | DRG 862 ==
LOC: ER 11:37 → TELE 11:38 → TELE-CENTR 18:19
PROVIDERS: ADMIT Hospitalist; ATTEND Internal Medicine
DX: T81.49XA Infection following a procedure, other surgical site, initial encounter (principal); N17.0 Acute kidney failure with tubular necrosis; E44.0 Moderate protein-calorie malnutrition; Z68.42 Body mass index [BMI] 45.0-49.9, adult; K27.7 Chronic peptic ulcer, site unspecified, without hemorrhage or perforation; E66.01 Morbid (severe) obesity due to excess calories; E78.5 Hyperlipidemia, unspecified; N18.9 Chronic kidney disease, unspecified; K21.9 Gastro-esophageal reflux disease without esophagitis; I12.9 Hypertensive chronic kidney disease with stage 1 through stage 4 chronic kidney disease, or unspecified chronic kidney disease; Z85.3 Personal history of malignant neoplasm of breast; Z90.11 Acquired absence of right breast and nipple; Z91.81 History of falling; Z88.5 Allergy status to narcotic agent; Y83.8 Other surgical procedures as the cause of abnormal reaction of the patient, or of later complication, without mention of misadventure at the time of the procedure; Y92.89 Other specified places as the place of occurrence of the external cause
CPT/HCPCS: 36415; 76642; 80048; 80053; 80061; 80307; 81001; 83036; 83605; 83735; 84484; 85025; 87040; 87077; 87081; 87086; 87186; 87205; 96365; 96375; G0378; J0696; J2405; J3490; J7060

== ENCOUNTER → 2020-09-13 | Outpatient (CLI) | payer OTHER, MEDICAID ==
[~2020-09-13] MED LIST changes: +CLIN300C8 PO; -HYDR12.56 PO; +LEVO500T21 PO; -LISI-646 PO; +SACC250C PO
== END | disposition home or self-care (01) ==
LOC: LAB 12:44
PROVIDERS: ATTEND Internal Medicine
DX: S21.001A Unspecified open wound of right breast, initial encounter (principal); X58.XXXA Exposure to other specified factors, initial encounter; Y93.89 Activity, other specified; Y92.89 Other specified places as the place of occurrence of the external cause; Y99.8 Other external cause status
CPT/HCPCS: 87070

== ENCOUNTER 2020-09-25 23:59 | Inpatient (IN) | payer OTHER, MEDICAID ==
[~2020-09-25] VITALS: Ht 160 cm; Wt 123.2 kg
[~2020-09-25 23:59] MED LIST changes: -LEVO500T21 PO; +LEVO500T31 PO
[2020-09-26 01:00] VITALS: BP 118/82
[2020-09-26 02:14] LABS: Urine Bacteria FEW /hpf (None Seen); Urine Blood TRACE /uL (Negative); Urine Specific Gravity > 1.050 (1.001-1.035); Urine WBC 234 /hpf (0 - 5)
[2020-09-26 02:33] LABS: Basophils # (auto) 0.1 10 ^3/uL (0-0.2); Basophils % (auto) 0.7 % (0.0-2.0); Eosinophils # (auto) 0.2 10 ^3/uL (0-0.8); Eosinophils % (auto) 2.7 % (0.0-7.0); Hematocrit 40.6 % (36.0-46.0); Hemoglobin 13.8 g/dL (12.2-16.2); Lymphocytes # (auto) 2.2 10 ^3/uL (0.4-5.4); Lymphocytes % (auto) 30.7 % (10.0-50.0); Mean Corpuscular Hemoglobin 30.6 pg (28.0-32.0); Mean Corpuscular Hgb Conc. 34.1 g/dL (32.0-36.0); Mean Corpuscular Volume 89.9 fL (80.0-100.0); Monocytes % (auto) 13.2 % (0.0-12.0); Neutrophils # (auto) 3.9 10 ^3/uL (1.6-8.6); Neutrophils % (auto) 52.7 % (37.0-80.0); Nucleated Red Blood Cells % 0.1 %; Platelet Count (auto) 214 10^3/uL (140-450); Red Blood Cells 4.52 10^6/uL (4.0-5.20); Red Cell Distribution Width 13.3 % (11.8-14.3); White Blood Cell 7.3 10^3/uL (4.4-10.8)
[2020-09-26 02:44] LABS: Albumin 3.3 g/dL (3.4-5.0); Potassium 3.8 mmol/L (3.5-5.1)
[2020-09-26 02:47] LABS: BUN/Creatinine Ratio 22.3; Bilirubin, Total 0.3 mg/dL (0.2-1.0); Total Protein 7.5 g/dL (6.4-8.2)
[2020-09-26] MEDS ORDERED: ONDANSETRON HCL 4 MG/2 ML VIAL IV PRN (06:30)
[2020-09-26] MEDS ORDERED: TEMAZEPAM 15 MG CAP PO PRN (06:30)
[2020-09-26] MEDS ORDERED: traMADol HCL 50 MG TAB PO PRN (06:30)
[2020-09-26] MEDS ORDERED: SODIUM CHLORIDE 0.9% 1,000 ML IV SCH (06:30)
[2020-09-26 06:53] LABS: INR 1.05 (0.9-1.15); Partial Thromboplastin Time 25.4 sec (23.0-31.2)
[2020-09-26 08:00] VITALS: BP 109/65
[2020-09-26] MEDS: cefTRIAXone 1GM/50ML D5W 50 ML IV SCH (08:48)
[2020-09-26] MEDS: FAMOTIDINE 20 MG TAB PO SCH ×2 (08:50→21:13)
[2020-09-26] MEDS: SODIUM CHLORIDE 0.9% 1,000 ML IV SCH ×2 (12:41→21:12)
[2020-09-26] MEDS ORDERED: CHOL20002 PO (13:57)
[2020-09-26] MEDS ORDERED: ALEN70TA74 PO (13:57)
[2020-09-26] MEDS ORDERED: HYDR12.56 PO (13:57)
[2020-09-26] MEDS ORDERED: CYAN1TAB11 PO (13:57)
[2020-09-26] MEDS ORDERED: GABA300C10 PO ×2 (13:57→13:58)
[2020-09-26] MEDS: CLINDAMYCIN 600MG IV 50 ML IV SCH ×2 (14:32→21:47)
[2020-09-26 16:00] VITALS: BP 135/93
[2020-09-26] MEDS: AMITRIPTYLINE HCL 25 MG TAB PO SCH (21:12)
[2020-09-26 23:33] VITALS: BP_SYST 107; BP_SYST 135; BP_DIAS 58; BP_DIAS 93
[2020-09-27] MEDS: SODIUM CHLORIDE 0.9% 1,000 ML IV SCH (04:00)
[2020-09-27] MEDS: CLINDAMYCIN 600MG IV 50 ML IV SCH (05:30)
[2020-09-27 05:50] VITALS: BP 123/62
[2020-09-27 06:36] LABS: Basophils # (auto) 0 10 ^3/uL (0-0.2); Basophils % (auto) 1.2 % (0.0-2.0); Eosinophils # (auto) 0.2 10 ^3/uL (0-0.8); Hemoglobin 12.6 g/dL (12.2-16.2); Lymphocytes # (auto) 1.1 10 ^3/uL (0.4-5.4); Lymphocytes % (auto) 36.8 % (10.0-50.0); Mean Corpuscular Hemoglobin 31.4 pg (28.0-32.0); Mean Corpuscular Hgb Conc. 34.9 g/dL (32.0-36.0); Monocytes # (auto) 0.4 10 ^3/uL (0-1.3); Neutrophils # (auto) 1.4 10 ^3/uL (1.6-8.6); Platelet Count (auto) 220 10^3/uL (140-450); Red Cell Distribution Width 13.8 % (11.8-14.3); White Blood Cell 3.1 10^3/uL (4.4-10.8)
[2020-09-27 06:54] LABS: Potassium 3.7 mmol/L (3.5-5.1)
[2020-09-27 07:01] LABS: BUN/Creatinine Ratio 18.1; Calcium 8.6 mg/dL (8.5-10.1)
[2020-09-27 08:00] VITALS: BP 105/71
[2020-09-27] MEDS: cefTRIAXone 1GM/50ML D5W 50 ML IV SCH (09:12)
[2020-09-27] MEDS: GABAPENTIN 100 MG CAP PO SCH (09:13)
[2020-09-27] MEDS: FAMOTIDINE 20 MG TAB PO SCH ×2 (09:13→21:31)
[2020-09-27] MEDS: CALCIUM W/VIT D (600MG/400IU) TAB PO SCH (09:13)
[2020-09-27] MEDS: ACETAMINOPHEN 325 MG TAB PO PRN ×2 (09:14→21:10)
[2020-09-27] MEDS: ANASTROZOLE PO SCH (10:00)
[2020-09-27] MEDS: ENOXAPARIN SOD 40 MG/0.4 ML SYRINGE SC SCH (15:58)
[2020-09-27] MEDS: PANTOPRAZOLE 40 MG TAB PO SCH (16:00)
[2020-09-27 16:24] VITALS: BP 116/60
[2020-09-27] MEDS: NAFCILLIN SOD 2GM 2 GM in SODIUM CHL 0.9% 100 ML IV SCH ×3 (17:16→21:30)
[2020-09-27] MEDS: AMITRIPTYLINE HCL 25 MG TAB PO SCH (21:31)
[2020-09-27 22:00] VITALS: BP 118/69
[2020-09-28] VITALS: BP 118/69
[2020-09-28] MEDS: NAFCILLIN SOD 2GM 2 GM in SODIUM CHL 0.9% 100 ML IV SCH ×6 (01:41→21:59)
[2020-09-28 05:00] VITALS: BP 124/66
[2020-09-28] MEDS: ACETAMINOPHEN 325 MG TAB PO PRN ×2 (07:44→19:46)
[2020-09-28 08:00] VITALS: BP 113/61
[2020-09-28 08:03] LABS: Basophils # (auto) 0 10 ^3/uL (0-0.2); Basophils % (auto) 1.2 % (0.0-2.0); Eosinophils # (auto) 0.1 10 ^3/uL (0-0.8); Eosinophils % (auto) 3.9 % (0.0-7.0); Hematocrit 36.7 % (36.0-46.0); Hemoglobin 12.6 g/dL (12.2-16.2); Lymphocytes # (auto) 1.2 10 ^3/uL (0.4-5.4); Lymphocytes % (auto) 36.9 % (10.0-50.0); Mean Corpuscular Hgb Conc. 34.3 g/dL (32.0-36.0); Mean Corpuscular Volume 90.4 fL (80.0-100.0); Monocytes # (auto) 0.5 10 ^3/uL (0-1.3); Monocytes % (auto) 14.4 % (0.0-12.0); Neutrophils # (auto) 1.4 10 ^3/uL (1.6-8.6); Neutrophils % (auto) 43.6 % (37.0-80.0); Nucleated Red Blood Cells % 0.1 %; Platelet Count (auto) 229 10^3/uL (140-450); Red Blood Cells 4.05 10^6/uL (4.0-5.20); Red Cell Distribution Width 13.8 % (11.8-14.3); White Blood Cell 3.2 10^3/uL (4.4-10.8)
[2020-09-28 08:24] LABS: Calcium 8.9 mg/dL (8.5-10.1)
[2020-09-28 08:26] LABS: BUN/Creatinine Ratio 15.5
[2020-09-28] MEDS: ANASTROZOLE PO SCH (10:00)
[2020-09-28] MEDS: GABAPENTIN 100 MG CAP PO SCH (10:59)
[2020-09-28] MEDS: ENOXAPARIN SOD 40 MG/0.4 ML SYRINGE SC SCH (10:59)
[2020-09-28] MEDS: PANTOPRAZOLE 40 MG TAB PO SCH (10:59)
[2020-09-28] MEDS: CALCIUM W/VIT D (600MG/400IU) TAB PO SCH (11:00)
[2020-09-28] MEDS: FAMOTIDINE 20 MG TAB PO SCH ×2 (11:00→21:58)
[2020-09-28] MEDS ORDERED: LIDOCAINE 1% (LOCAL ANESTH.) PF 5ml SDV ID ONE (13:30)
[2020-09-28 16:00] VITALS: BP 134/93
[2020-09-28] MEDS: SODIUM CHLOR 0.9% PF (SALINE LOCK) 10ML VIAL/SYR IV SCH (21:58)
[2020-09-28] MEDS: AMITRIPTYLINE HCL 25 MG TAB PO SCH (21:58)
[2020-09-28 22:00] VITALS: BP 144/74
[2020-09-29] MEDS: NAFCILLIN SOD 2GM 2 GM in SODIUM CHL 0.9% 100 ML IV SCH ×3 (02:00→10:15)
[2020-09-29 05:00] VITALS: BP 117/65
[2020-09-29] MEDS: ACETAMINOPHEN 325 MG TAB PO PRN (06:52)
[2020-09-29 08:00] VITALS: BP 146/72
[2020-09-29 08:11] LABS: Basophils # (auto) 0 10 ^3/uL (0-0.2); Basophils % (auto) 1.1 % (0.0-2.0); Eosinophils # (auto) 0.2 10 ^3/uL (0-0.8); Eosinophils % (auto) 4.5 % (0.0-7.0); Hemoglobin 12.6 g/dL (12.2-16.2); Lymphocytes % (auto) 27.5 % (10.0-50.0); Mean Corpuscular Hemoglobin 31.6 pg (28.0-32.0); Mean Corpuscular Volume 90.1 fL (80.0-100.0); Monocytes # (auto) 0.4 10 ^3/uL (0-1.3); Neutrophils # (auto) 1.9 10 ^3/uL (1.6-8.6); Neutrophils % (auto) 54.9 % (37.0-80.0); Platelet Count (auto) 228 10^3/uL (140-450); Red Cell Distribution Width 13.7 % (11.8-14.3); White Blood Cell 3.5 10^3/uL (4.4-10.8)
[2020-09-29 08:13] LABS: BUN/Creatinine Ratio 12.6; Calcium 8.7 mg/dL (8.5-10.1); Potassium 3.9 mmol/L (3.5-5.1)
[2020-09-29] MEDS: ANASTROZOLE PO SCH (10:00)
[2020-09-29] MEDS: GABAPENTIN 100 MG CAP PO SCH (10:15)
[2020-09-29] MEDS: SODIUM CHLOR 0.9% PF (SALINE LOCK) 10ML VIAL/SYR IV SCH (10:15)
[2020-09-29] MEDS: PANTOPRAZOLE 40 MG TAB PO SCH (10:15)
[2020-09-29] MEDS: FAMOTIDINE 20 MG TAB PO SCH (10:15)
[2020-09-29] MEDS: CALCIUM W/VIT D (600MG/400IU) TAB PO SCH (10:16)
[2020-09-29] MEDS: ENOXAPARIN SOD 40 MG/0.4 ML SYRINGE SC SCH (10:16)
[2020-09-29 15:54] VITALS: BP 110/78
[2020-09-29 16:00] VITALS: BP 134/77
== END 2020-09-29 17:30 | disposition home health service (06) | DRG 603 ==
LOC: TELE 23:59 → TELE-WESTW 09-26 01:11
PROVIDERS: ADMIT Nurse Practitioner; ATTEND Internal Medicine
DX: L02.213 Cutaneous abscess of chest wall (principal); N39.0 Urinary tract infection, site not specified; N17.9 Acute kidney failure, unspecified; Z68.42 Body mass index [BMI] 45.0-49.9, adult; E87.2 Acidosis; L03.313 Cellulitis of chest wall; E86.0 Dehydration; I10 Essential (primary) hypertension; F32.9 Major depressive disorder, single episode, unspecified; E66.01 Morbid (severe) obesity due to excess calories; K27.9 Peptic ulcer, site unspecified, unspecified as acute or chronic, without hemorrhage or perforation; Z88.5 Allergy status to narcotic agent; Z20.822 Contact with and (suspected) exposure to COVID-19; Z82.49 Family history of ischemic heart disease and other diseases of the circulatory system; Z85.3 Personal history of malignant neoplasm of breast; Z90.11 Acquired absence of right breast and nipple; Z90.710 Acquired absence of both cervix and uterus; Z92.3 Personal history of irradiation; B95.2 Enterococcus as the cause of diseases classified elsewhere
CPT/HCPCS: 36415; 36569; 71045; 80048; 80053; 81001; 83605; 85025; 85610; 85730; 87040; 87077; 87081; 87186; 87205; G0378; J0696; J3490

== ENCOUNTER → 2020-11-13 | Outpatient (CLI) | payer OTHER, MEDICAID ==
[~2020-11-13] MED LIST changes: +ALEN70TA74 PO; +CHOL20002 PO; -CHOL500023 PO; -CLIN300C8 PO; -CYA100I IM; +CYAN1TAB11 PO; -GABA100C9 PO; +GABA300C10 PO; -LEVO500T31 PO; -METO-169 PO; -SACC250C PO
[2020-11-13 14:52] LABS: Basophils # (auto) 0 10 ^3/uL (0-0.2); Basophils % (auto) 0.5 % (0.0-2.0); Eosinophils # (auto) 0.1 10 ^3/uL (0-0.8); Eosinophils % (auto) 2.2 % (0.0-7.0); Hematocrit 40.9 % (36.0-46.0); Hemoglobin 14.1 g/dL (12.2-16.2); Lymphocytes # (auto) 1.5 10 ^3/uL (0.4-5.4); Lymphocytes % (auto) 26.5 % (10.0-50.0); Mean Corpuscular Hemoglobin 33.1 pg (28.0-32.0); Mean Corpuscular Hgb Conc. 34.5 g/dL (32.0-36.0); Mean Corpuscular Volume 95.9 fL (80.0-100.0); Monocytes # (auto) 0.6 10 ^3/uL (0-1.3); Monocytes % (auto) 11.4 % (0.0-12.0); Neutrophils # (auto) 3.4 10 ^3/uL (1.6-8.6); Neutrophils % (auto) 59.4 % (37.0-80.0); Nucleated Red Blood Cells % 0.1 %; Platelet Count (auto) 305 10^3/uL (140-450); Red Blood Cells 4.27 10^6/uL (4.0-5.20); Red Cell Distribution Width 15.7 % (11.8-14.3); White Blood Cell 5.7 10^3/uL (4.4-10.8)
[2020-11-13 15:15] LABS: Albumin 3.5 g/dL (3.4-5.0); Calcium 9.5 mg/dL (8.5-10.1); Potassium 4.3 mmol/L (3.5-5.1)
[2020-11-13 15:18] LABS: BUN/Creatinine Ratio 22.4; Bilirubin, Total 0.4 mg/dL (0.2-1.0); Total Protein 7.7 g/dL (6.4-8.2)
== END | disposition home or self-care (01) ==
LOC: LAB 14:36
PROVIDERS: ATTEND Internal Medicine
DX: C50.911 Malignant neoplasm of unspecified site of right female breast (principal); Z88.5 Allergy status to narcotic agent
CPT/HCPCS: 36415; 80053; 83615; 85025; 86300